=== PATIENT | male | born 1995 | race Two or more races ===

== ENCOUNTER 2019-03-02 08:07 | Emergency (ER) | payer OTHER ==
[~2019-03-02] VITALS: Ht 172.7 cm; Wt 59.0 kg
[2019-03-02 09:30] VITALS: BP 100/61
== END 2019-03-02 10:35 | disposition home or self-care (01) ==
LOC: ED 10:21
DX: F41.1 Generalized anxiety disorder (principal); R07.89 Other chest pain; F17.210 Nicotine dependence, cigarettes, uncomplicated
CPT/HCPCS: 36415; 71045; 80048; 82040; 84484; 85025; 93005; 96372; 99284; J1885